=== PATIENT | female | born 1945 | race Caucasian/White ===

== ENCOUNTER → 2019-11-15 | Outpatient (CLI) | payer OTHER ==
[~2019-11-15] MED LIST: ALBU90OI INH; CYCL10 PO; DIPH50 PO; Norco 5-325 Ta1 EACH PO; Zithromax250 MG PO
== END ==
LOC: LAB SHORT 15:26 → LAB EV 15:26
DX: N39.0 Urinary tract infection, site not specified (principal)
CPT/HCPCS: 87077; 87086; 87186

== ENCOUNTER → 2023-09-05 | Outpatient (CLI) | payer OTHER ==
[~2023-09-05] MED LIST changes: +Acetaminophen325 M1 PO
== END | disposition home or self-care (01) ==
LOC: LAB SHORT 08:34 → LAB 08:34
DX: C54.1 Malignant neoplasm of endometrium (principal)
CPT/HCPCS: 88305; 88312; 88342

== ENCOUNTER 2024-03-18 18:21 | Inpatient (IN) | payer OTHER ==
[~2024-03-18] VITALS: Ht 160 cm; Wt 64.4 kg
[~2024-03-18 18:21] MED LIST changes: +ACET500 PO; -Acetaminophen325 M1 PO
[2024-03-18 18:50] LABS: BASOPHILS ABSOLUTE AUTO 0.02 K/mm3 (0.00-0.23); BASOPHILS PERCENT AUTO 0 % (0-2); EOSINOPHILS ABSOLUTE AUTO 0.08 K/mm3 (0.00-0.68); EOSINOPHILS PERCENT AUTO 1 % (0-6); Hematocrit 31.4 % (33.0-51.0); Hemoglobin 10.4 g/dL (11.5-16.0); IMMATURE GRAN ABSOLUTE AUTO 0.02 K/mm3 (0.00-0.10); IMMATURE GRAN PERCENT AUTO 0 % (0-1); LYMPHOCYTES ABSOLUTE AUTO 1.25 K/mm3 (0.84-5.20); LYMPHOCYTES PERCENT AUTO 13 % (21-46); MONOCYTES ABSOLUTE AUTO 0.81 K/mm3 (0.16-1.47); MONOCYTES PERCENT AUTO 8 % (4-13); Mean Corpuscular HGB 30.1 pg (26.0-34.0); Mean Corpuscular HGB Conc 33.1 g/dL (31.5-36.5); Mean Corpuscular Volume 91 fL (80-100); Mean Platelet Volume 8.7 fL (9.1-12.4); NEUTROPHILS ABSOLUTE AUTO 7.49 K/mm3 (1.96-9.15); NEUTROPHILS PERCENT AUTO 78 % (41-73); Platelet Count 391 K/mm3 (150-400); RDW Coefficient Variation 13.4 % (11.7-14.2); RDW Standard Deviation 44.2 fL (35.1-46.3); Red Blood Cell Count 3.46 M/mm3 (3.80-5.20); White Blood Cell Count 9.67 K/mm3 (4.00-11.30)
[2024-03-18] MEDS ORDERED: HYDR1TAB94 PO (19:14)
[2024-03-18 19:15] LABS: Albumin/Globulin Ratio 0.6 (0.8-1.8); Bilirubin, Total 0.5 mg/dL (0.1-1.0); Bun/Creatinine Ratio 26.2 (12.0-20.0); Creatinine, Blood 1.07 mg/dL (0.40-1.00); Globulin, Blood 4.9 g/dL (2.2-4.0); Potassium, Blood 4.3 mmol/L (3.5-5.5); Total Protein, Blood 7.9 g/dL (6.4-8.2)
[2024-03-18] MEDS ORDERED: Lactated Ringer's 1,000 ML IV ONE (21:10)
[2024-03-18 22:40] LABS: Source, Urine Clean Catch
[2024-03-18] MEDS ORDERED: Ketorolac Tromethamine 15mg Vial IV ONE (22:40)
[2024-03-18 22:45] LABS: Bilirubin, Urine Neg (Neg); Blood, Urine 5+ (Neg); Glucose Qualitative, Urine Neg (Neg); Ketones, Urine 2+ (Neg); Leukocyte Esterase, Urine 2+ (Neg); Nitrite, Urine Neg (Neg); Protein, Urine 2+ (Neg); Specific Gravity, Urine 1.015 (1.003-1.022); Urobilinogen, Urine NORM (Normal)
[2024-03-18 22:52] LABS: Appearance, Urine Hazy (Clear); Color, Urine Yellow (P-Yellow)
[2024-03-18 22:53] LABS: Bacteria Few /hpf; Red Blood Cells, Urine TNTC /hpf (0-2); Squamous Epithelial Cells Rare /hpf (Few)
[2024-03-18] MEDS ORDERED: Bisacodyl 10 MG Supp PR PRN (23:10)
[2024-03-18] MEDS ORDERED: FLU VACC TS2024-25(6MOS UP)/PF 45 MCG/0.5 ML SYRINGE IM ONE (23:10)
[2024-03-18] MEDS ORDERED: Magnesium Hydroxide Conc 10 ML UDC PO PRN (23:10)
[2024-03-18] MEDS ORDERED: FentaNYL Citrate 50 MCG/ML 2 ML Injection IV PRN (23:10)
[2024-03-18] MEDS ORDERED: Ondansetron HCl 2 MG / ML 2ML Vial IV PRN (23:15)
[2024-03-18] MEDS ORDERED: NS 1,000 ML IV ONE (23:15)
[2024-03-19 01:30] VITALS: BP 135/73
--- NOTE | 2024-03-19 02:59 | NUR ---
SHIFT SUMMARY THIS CORD CUTTER RECEIVED A TELEPHONE SBAR FROM TATA SYKES@ ER @0022. PT ARRIEVED TO MEDICAL FLOOR RM#[id number] VIA [facility] @0120. PT WAS TRANSPORTED BY ER STAFF MEMBER. PT WAS TRANSFERRED FROM [facility] TO HOSPITAL BED. ADMISSION ASSESSMENT COMPLETED BY LOG CARRIER OPERATOR LISA. SKIN CHECK COMPLETED BY TATA REHMAN AND THIS CORD CUTTER. HEALTH HX AND MEDICATION RECONCILIATION COMPLETED BY THIS CORD CUTTER. PT STATES HAD AN ALLERGIC REACTION TO HYDROCODONE WITH TYLENOL IN THE PAST (RASH T/O THE BODY.) ALLERGY IS LISTED ON PT'S EMAR/MEDITECH. PT REPORTS FEELING WEAK. PT WAS GIVEN FWW, AND ASSISTED/STANDBY TO THE RESTROOM. TELE: SR@98. PT IS ON RA. MEDICATIONS WHOLE WITH FLUIDS. DIET ORDER: CLEAR LIQUIDS. IV NS@100MLS/HR STARTED 06/19 BAG ORDERED. FENTANYL PRN FOR C/O 8/10 LLQ AND LOW BACK PAIN, ADMINISTERED ORDERED. PT REPORTS GOOD EFFECTIVNESS. PT STATES LIVES IN HER SON'S HOUSE, DAUGHTER AND GRAND DAUGHTER ARE VERY HELPFUL WELL. 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 PT STATES FINISHED WITH CHEMO THERAPY, DOES NOT RECALL WHEN LAST CHEMO TX WAS. PT REPORTS STARTING IMMUNOTHERAPY AFTER CHEMO. PT C/O CONSTIPATION, LAST BM WAS ON 03/14/24 OR PRIOR TO THAT DATE. PT WAS EDUCATED ON FIRE SAFETY AND CALL LIGHT. PALLIATIVE CARE CONSULT REQUESTED D/T PT WOULD LIKE TO FILL OUT FORMS FOR ADVANCE DIRECTIVE. BED AT THE LOWEST POSITION, CALL LIGHT WITHIN REACH. PT IS A&ON X4, VERY PLEASANT, COOPERATIVE WITH CARE. PT IS ABLE TO MAKE HER NEEDS KNOWN.
[2024-03-19] MEDS ORDERED: CefTRIAXone Sodium 1,000 MG in NS 100 ML IV SCH (03:54)
[2024-03-19] MEDS ORDERED: NS 250 ML IV PRN (04:30)
--- NOTE | 2024-03-19 04:59 | NUR ---
NEW T-ORDER RECEIVED FROM ON-CALL HOSPITALIST FOR TYLENOL PO PRN 650MG Q6HRS. ENTERED TO [employer] BY THIS LEAD DEVELOPER, SEE EMAR. NO ADDITIONAL NEW ORDERS AT THIS TIME. PT REQUESTED TYLENOL FOR LLQ AND LOW BACK PAIN. WILL ADMINISTER WHEN THE NEW ORDER ACTIVATES.
[2024-03-19] MEDS ORDERED: Acetaminophen 325 MG TABLET PO PRN (05:00)
[2024-03-19] MEDS ORDERED: ELIQUIS2.5 M1 PO (05:24)
[2024-03-19] MEDS ORDERED: Prednisone10 MG PO (05:24)
[2024-03-19 05:41] LABS: BASOPHILS ABSOLUTE AUTO 0.03 K/mm3 (0.00-0.23); BASOPHILS PERCENT AUTO 0 % (0-2); EOSINOPHILS ABSOLUTE AUTO 0.11 K/mm3 (0.00-0.68); EOSINOPHILS PERCENT AUTO 1 % (0-6); Hematocrit 27.4 % (33.0-51.0); Hemoglobin 8.8 g/dL (11.5-16.0); IMMATURE GRAN ABSOLUTE AUTO 0.04 K/mm3 (0.00-0.10); IMMATURE GRAN PERCENT AUTO 1 % (0-1); LYMPHOCYTES ABSOLUTE AUTO 1.45 K/mm3 (0.84-5.20); LYMPHOCYTES PERCENT AUTO 18 % (21-46); MONOCYTES ABSOLUTE AUTO 0.83 K/mm3 (0.16-1.47); MONOCYTES PERCENT AUTO 11 % (4-13); Mean Corpuscular HGB 29.8 pg (26.0-34.0); Mean Corpuscular HGB Conc 32.1 g/dL (31.5-36.5); Mean Corpuscular Volume 93 fL (80-100); Mean Platelet Volume 8.9 fL (9.1-12.4); NEUTROPHILS ABSOLUTE AUTO 5.46 K/mm3 (1.96-9.15); NEUTROPHILS PERCENT AUTO 69 % (41-73); Platelet Count 320 K/mm3 (150-400); RDW Coefficient Variation 13.5 % (11.7-14.2); RDW Standard Deviation 45.8 fL (35.1-46.3); Red Blood Cell Count 2.95 M/mm3 (3.80-5.20); White Blood Cell Count 7.92 K/mm3 (4.00-11.30)
[2024-03-19 06:55] LABS: Albumin, Blood 2.5 g/dL (3.4-5.0); Albumin/Globulin Ratio 0.6 (0.8-1.8); Bilirubin, Total 0.4 mg/dL (0.1-1.0); Bun/Creatinine Ratio 28.3 (12.0-20.0); Calcium, Blood 9.4 mg/dL (8.5-10.1); Creatinine, Blood 1.06 mg/dL (0.40-1.00); Globulin, Blood 4.1 g/dL (2.2-4.0); Potassium, Blood 4.3 mmol/L (3.5-5.5); Total Protein, Blood 6.6 g/dL (6.4-8.2)
[2024-03-19 07:49] VITALS: BP 116/59
--- NOTE | 2024-03-19 07:53 | NUR ---
DR CLAY WITH INTERVENTIONAL RADIOLOGY TO BEDSIDE. VERBAL ORDERS FOR NPO IN ANTICIPATION OF NEPHROSTOMY PLACEMENT LATER THIS AFTERNOON.
[2024-03-19] MEDS ORDERED: PredniSONE 10 MG Tab PO SCH (09:00)
[2024-03-19] MEDS ORDERED: Docusate Sodium 100 MG Cap PO SCH (09:00)
[2024-03-19] MEDS ORDERED: Sennosides 8.6 MG Tab PO SCH (09:00)
[2024-03-19] MEDS ORDERED: Lactated Ringer's 1,000 ML IV SCH (12:40)
[2024-03-19] MEDS ORDERED: ONDA4ODT MM (14:23)
[2024-03-19] MEDS ORDERED: NS 250 ML IV ONE (16:01)
[2024-03-19] MEDS ORDERED: NS 500 ML IV ONE (16:16)
[2024-03-19] MEDS ORDERED: Midazolam HCl 1MG / ML 2ML Vial ONE (16:16)
[2024-03-19] MEDS ORDERED: FentaNYL Citrate 50 MCG/ML 2 ML Injection ONE (16:16)
--- NOTE | 2024-03-19 16:33 | NUR ---
PATIENT TRANSPORTED TO [facility] FOR IR PROCEDURE BY HEART CENTER STAFF.
--- NOTE | 2024-03-19 17:19 | NUR ---
CALL FROM [facility] IN IR: THEY ARE HEADED BACK WITH PATIENT RIGHT NOW.
[2024-03-19] MEDS ORDERED: TraMADol HCl 50 MG Tab PO PRN (17:20)
[2024-03-19 17:35] VITALS: BP 132/56
--- NOTE | 2024-03-19 19:21 | NUR ---
END OF SHIFT SUMMARY: A&Ox4. PLEASANT AND COOPERATIVE WITH CARE. CALLS APPROPRIATELY AND IS ABLE TO ADVOCATE NEEDS EFFECTIVELY. WEAKNESS SECONDARY TO PAIN; SBA c FWW. NO BM TODAY; GIVEN STOOL SOFTENERS, BUT SHE WANTED TO WAIT UNTIL AFTER HER PROCEDURE FOR LAXATIVE. LBM x5 DAYS AGO. MEDS WHOLE WITH FLUIDS. TELE SINUS IN THE 90s. PAIN CONSTANT, IMPROVED WITH FENTANYL. IR CONSULTED AND PLACED 8F LEFT NEPHROSTOMY TODAY. SECURELY ATTACHED TO BANDAGE AT INSERTION SITE AND ATTACHED TO A URACIL BAG. 100mL SEROSANGUINEOUS DRAINAGE DRAINED FROM COLLECTION BAG. ADDITION OF TRAMADOL TO MEDICATION REGIMEN FOR LONGEVITY OF PAIN CONTROL AND CONTINUE USE OF FENTANYL FOR IMMEDIATE RELIEF. ORDERS TO FLUSH TUBE c 10mL SALINE QD. FAMILY AT BEDSIDE MOST OF EVENING. PALLIATIVE CARE TO BEDSIDE TO DISCUSS ADVANCED DIRECTIVE AND LEFT INFORMATION. BED IN LOWEST POSITION. CALL LIGHT WITHIN REACH. ALL NEEDS MET. REPORT TO ONCOMING NURSE.
[2024-03-19 19:49] VITALS: BP 128/75
[2024-03-20 03:37] VITALS: BP 131/55
--- NOTE | 2024-03-20 04:17 | NUR ---
THIS EXTERIOR WORK HELPER [facility] PT C/O 01/26 PAIN ON LLQ AND LOW BACK. NO ALAGESICS AVAILABLE AT THIS TIME. DR. BROWN STATED THAT HE WILL PUT IN NEW ORDER. NO NEW ORDERS RECEIVED OVER THE PHONE AT THIS TIME.
--- NOTE | 2024-03-20 04:45 | NUR ---
SHIFT SUMMARY PT CONTINUES TO HAVE SEVERE PAIN <Q4HRS, RATING 8/10@LLQ AND LOW BACK. TRAMADOL, TYLENOL PO PRN NOT EFFECTIVE PER PT REPORT. FENTANYL PRN IV EFFECTIVE FOR SHORT TIME PERIOD. LEFT NEPHROSTOMY INTACT, DRAINING PINKINSH COLOR FLUID. PT HAS BEEN RESTING FEW HRS DURING THIS SHIFT. THIS MANAGEMENT SERVICES TECHNICIAN CALLED /ON-CALL HOSPITALIST. DR. BROWN REPORTS WILL CHANGE PAIN MEDICATION ORDERS. AWAITING TO ADMINISTER. NO ACUTE EVENTS DURING THIS SHIFT. PT IS A&O X4, ABLE TO MAKE HER NEEDS KNOWN. BED AT THE LOWEST POSITION. PT IS STANDBY ASSIST TO THE RESTROOM. PT IS COOPERATIVE WITH CARE.
[2024-03-20 06:02] LABS: BASOPHILS ABSOLUTE AUTO 0.03 K/mm3 (0.00-0.23); BASOPHILS PERCENT AUTO 0 % (0-2); EOSINOPHILS ABSOLUTE AUTO 0.05 K/mm3 (0.00-0.68); EOSINOPHILS PERCENT AUTO 1 % (0-6); Hematocrit 26.4 % (33.0-51.0); Hemoglobin 8.4 g/dL (11.5-16.0); IMMATURE GRAN ABSOLUTE AUTO 0.04 K/mm3 (0.00-0.10); IMMATURE GRAN PERCENT AUTO 0 % (0-1); LYMPHOCYTES ABSOLUTE AUTO 1.44 K/mm3 (0.84-5.20); LYMPHOCYTES PERCENT AUTO 15 % (21-46); MONOCYTES PERCENT AUTO 10 % (4-13); Mean Corpuscular HGB 29.9 pg (26.0-34.0); Mean Corpuscular HGB Conc 31.8 g/dL (31.5-36.5); Mean Corpuscular Volume 94 fL (80-100); Mean Platelet Volume 8.8 fL (9.1-12.4); NEUTROPHILS PERCENT AUTO 74 % (41-73); Platelet Count 386 K/mm3 (150-400); RDW Coefficient Variation 13.9 % (11.7-14.2); RDW Standard Deviation 47.5 fL (35.1-46.3); Red Blood Cell Count 2.81 M/mm3 (3.80-5.20); White Blood Cell Count 9.86 K/mm3 (4.00-11.30)
[2024-03-20] MEDS ORDERED: HYDROmorphone HCl/Pf 1MG SYR IV PRN (06:30)
[2024-03-20 06:45] LABS: Albumin, Blood 2.4 g/dL (3.4-5.0); Albumin/Globulin Ratio 0.6 (0.8-1.8); Bilirubin, Total 0.3 mg/dL (0.1-1.0); Calcium, Blood 9.2 mg/dL (8.5-10.1); Creatinine, Blood 0.78 mg/dL (0.40-1.00); Globulin, Blood 4.2 g/dL (2.2-4.0); Total Protein, Blood 6.6 g/dL (6.4-8.2)
[2024-03-20] MEDS ORDERED: Ketorolac Tromethamine 30mg Vial IV PRN (07:00)
[2024-03-20 07:30] VITALS: BP 136/58
[2024-03-20] MEDS ORDERED: Magnesium Hydroxide Conc 10 ML UDC PO PRN (11:10)
[2024-03-20] MEDS ORDERED: OxyCODONE HCL 5 MG TAB PO PRN (11:15)
[2024-03-20 16:28] VITALS: BP 137/69
--- NOTE | 2024-03-20 19:22 | NUR ---
SHIFT SUMMARY- BEDSIDE REPORT COMPLETED WITH NIGHT RN ANDREA, ON EVENING ROUNDS THE PT REQUESTED PAIN MEDICATION HER PAIN HAS BEEN WELL MANAGED WITH 5MG OXY SHE REQUESTED THAT. MEDICATED PT JUST PRIOR TO SHIFT CHANGE. PT REPORTS 1/10 PAIN AT THIS TIME. PT IN BED, CALL LIGHT IN REACH NO S&S OF DISTRESS NOTED. PT HAS MULTIPLE VISITORS PRESENT AT THE BEDSIDE.
[2024-03-20 19:55] VITALS: BP 135/70
[2024-03-20] MEDS ORDERED: DiphenhydrAMINE HCl 50 MG Cap PO ONE (22:00)
--- NOTE | 2024-03-20 22:14 | NUR ---
THIS CONFERENCE SERVICES MANAGER CALLED ON-CALL HOSPITALIST ZECHARIAH. PT C/O SKIN ITCHING AROUND GROIN AREA. ZECHARIAH ENTERED A ONE TIME ORDER FOR BENADRYL 50MG PO. ADMINISTERED ORDERED. SEE EMAR.
--- NOTE | 2024-03-21 03:51 | NUR ---
SHIFT SUMMARY PT IS A&O X4, PLEASANT, COOPERATIVE WITH CARE. PT C/O 5/10 LLQ& RLQ PAIN. PRN TORADOL X1, AND LATER 1X OXYCODONE 5MG PO PRN EFFECTIVE PER PT REPORT. PT C/O ITCHING AROUND GROIN AREA. ONE TIME ORDER BENADRYL PO 50MG RECEIVED FROM ON-CALL HOSPITALIST ZECHARIAH. TELE: SR@. PT DENIES N/V. NO BM DURING THIS SHIFT, HS SCHEDULED SENNA& COLACE ADMINISTERED ORDERED. NEPHROSTOMY DRESSING C/D/I. URINE IS PINKISH IN COLOR. PULSE OX>95% ON RA. NO ACUTE EVENTS DURING THIS SHIFT. BED AT THE LOWEST POSITION, CALL LIGHT WITHIN REACH. PT IS ABLE TO MAKE HER NEEDS KNOWN.
[2024-03-21 05:39] VITALS: BP 142/79
[2024-03-21 07:07] LABS: BASOPHILS ABSOLUTE AUTO 0.03 K/mm3 (0.00-0.23); BASOPHILS PERCENT AUTO 0 % (0-2); EOSINOPHILS ABSOLUTE AUTO 0.05 K/mm3 (0.00-0.68); EOSINOPHILS PERCENT AUTO 1 % (0-6); Hematocrit 26.2 % (33.0-51.0); Hemoglobin 8.5 g/dL (11.5-16.0); IMMATURE GRAN ABSOLUTE AUTO 0.04 K/mm3 (0.00-0.10); IMMATURE GRAN PERCENT AUTO 0 % (0-1); LYMPHOCYTES ABSOLUTE AUTO 1.43 K/mm3 (0.84-5.20); LYMPHOCYTES PERCENT AUTO 13 % (21-46); MONOCYTES PERCENT AUTO 10 % (4-13); Mean Corpuscular HGB 30.1 pg (26.0-34.0); Mean Corpuscular HGB Conc 32.4 g/dL (31.5-36.5); Mean Corpuscular Volume 93 fL (80-100); Mean Platelet Volume 8.7 fL (9.1-12.4); NEUTROPHILS ABSOLUTE AUTO 8.06 K/mm3 (1.96-9.15); NEUTROPHILS PERCENT AUTO 75 % (41-73); Platelet Count 393 K/mm3 (150-400); RDW Coefficient Variation 13.8 % (11.7-14.2); RDW Standard Deviation 46.6 fL (35.1-46.3); Red Blood Cell Count 2.82 M/mm3 (3.80-5.20); White Blood Cell Count 10.71 K/mm3 (4.00-11.30)
[2024-03-21 07:16] VITALS: BP 134/58
[2024-03-21 07:50] LABS: Albumin, Blood 2.5 g/dL (3.4-5.0); Albumin/Globulin Ratio 0.6 (0.8-1.8); Bilirubin, Total 0.3 mg/dL (0.1-1.0); Bun/Creatinine Ratio 45.2 (12.0-20.0); Calcium, Blood 9.9 mg/dL (8.5-10.1); Creatinine, Blood 0.77 mg/dL (0.40-1.00); Globulin, Blood 4.2 g/dL (2.2-4.0); Potassium, Blood 5.1 mmol/L (3.5-5.5); Total Protein, Blood 6.7 g/dL (6.4-8.2)
[2024-03-21] MEDS ORDERED: Betamethasone/Clotrimazole Crm 15 gm TOP SCH (09:00)
[2024-03-21] MEDS ORDERED: CLOBETTC TOP (12:12)
[2024-03-21] MEDS ORDERED: DULCOLAX400 MG/5 M PO (12:12)
[2024-03-21] MEDS ORDERED: OXYC5 PO (12:13)
[2024-03-21] MEDS ORDERED: Prednisone10 MG PO (12:14)
[2024-03-21] MEDS ORDERED: Lactulose 20 GM/30 ML UDC PO ONE (14:20)
[2024-03-21] MEDS ORDERED: Lactated Ringer's 500 ML IV ONE (15:00)
[2024-03-21] MEDS ORDERED: Metoclopramide HCl 5MG / ML 2ML Vial IV PRN (15:20)
[2024-03-21 16:08] VITALS: BP 136/65
--- NOTE | 2024-03-21 16:13 | NUR ---
[facility] WAS SIGNED BY PROVIDER THIS MORNING. COPY MADE SENT TO MEDICAL RECORDS. FAXED TO [facility].
[2024-03-21 19:59] VITALS: BP 143/65
--- NOTE | 2024-03-21 20:10 | NUR ---
SHIFT SUMMARY- PT ALERT AD ORIENTED X4. PLAN WAS FOR MD TO DC THE PT AFTER SHE HAS A BM. AFTER MOM, DOCUSATE, SENNA, BISACODYL SUPPOSITORY, BROWN COW, REGLAN AD FINALLY LACTULOSE, THE PT HAD ABOUT 12 ML OF BROWN LIQUID JELLY. CALLED DR RIDLEY AND HE IS AWARE. PLAN IS TO HOLD DISCHARGE AND REVISIT THE PLAN TOMORROW. PT IN BED, CALL LIGHT IN REACH NO S&S OF DISTRESS AT THE TIME OF BEDSIDE REPORT. PT RECIEVED PAIN MEDS AT CHANGE OF SHIFT.
--- NOTE | 2024-03-22 03:27 | NUR ---
SHIFT SUMMARY @HS PT'S DAUGHTERS BY THE BEDSIDE. PT C/O 5-11/26 LLQ PAIN. MEDICATED WITH PRN PO OXYCODONE 5MG X1, PRN IV TORADOL 15MG X1, AND PRN PO OXYCODONE 10MG X1. NEPHROSTOMY OUTPUT 200ML, REDDISH IN COLOR, DRAINING WELL, DRESSING C/D/I. PT VOIDING SMALL AMOUNTS <75ML X4 DURING THIS SHIFT. PT AMBULATES WTH STANDBY ASSIST TO THE RESTROOM. BOWEL PROTOCL CONTINUED DURING THIS SHIFT: NO BM, SOME URGENCY. BOWEL TONES HYPOACTIVE PER AUSCULTATION. BED AT THE LOWEST POSITION, CALL LIGHT W/I REACH. PT IS ABLE TO MAKE HER NEEDS KNOWN, AND IS COOPERATIVE WITH CARE.
[2024-03-22 07:13] VITALS: BP 142/64
--- NOTE | 2024-03-22 08:19 | NUR ---
Pt laying in bed watching tv, a/ox4, pleasant and cooperative with care, follows commands well, denies pain at this time, instructed her to let nurse know as soon as starts so we can stay on top of it, lungs are clear t/o, resp even and unlabored, no cough noted, denies cough, hrr, tele in place running sr per monitor, see strip, no edema noted, piv to lac site is clear and patent, btx2 hypoactive, abd a bit distended, she thinks she may be passing some gas, but no bm in many days, bowel care was started, has urostomy in place, draing dk fluid, able to ambulate with a walker and help, skin c/w/d, gerber yan, call light in reach.
[2024-03-22] MEDS ORDERED: Lactulose 20 GM/30 ML UDC PO ONE ×2 (08:55→09:00)
[2024-03-22] MEDS ORDERED: Ondansetron HCl 2 MG / ML 2ML Vial IV ONE (09:20)
[2024-03-22] MEDS ORDERED: Ondansetron HCl 2 MG / ML 2ML Vial ONE (09:23)
--- NOTE | 2024-03-22 09:30 | NUR ---
pt unable to tolerate the lactulose, immediately came back up, notified Dr. Vivar, recieved order for zofran, this was administered with relief, family at bedside. call light in reach.
[2024-03-22] MEDS ORDERED: Lactated Ringer's 1,000 ML IV SCH ×2 (11:20→22:50)
[2024-03-22] MEDS ORDERED: Polyethylene Glycol 3350 17 gm PO SCH (12:00)
[2024-03-22] MEDS ORDERED: Lactulose 20 GM/30 ML UDC PO SCH (13:00)
[2024-03-22 15:31] VITALS: BP 134/69
[2024-03-22] MEDS ORDERED: Lidocaine HCl 2% Jelly 120MG/6ML SYR (20MG PER ML) TOP ONE (17:35)
--- NOTE | 2024-03-22 18:24 | NUR ---
Pt family in to visit. ordered an NG tube to decompress, this was placed without diff, she tolerated well, immediate return of clear/brown liquid, she thinks she may have had a very small bm this evening. no further changes this shift, call light in reach.
[2024-03-22 20:32] VITALS: BP 139/69
[2024-03-23] MEDS ORDERED: Benzocaine Oral Spray 0.5ML UD MT PRN (02:00)
[2024-03-23 04:58] LABS: BASOPHILS ABSOLUTE AUTO 0.02 K/mm3 (0.00-0.23); BASOPHILS PERCENT AUTO 0 % (0-2); EOSINOPHILS ABSOLUTE AUTO 0.04 K/mm3 (0.00-0.68); EOSINOPHILS PERCENT AUTO 0 % (0-6); Hematocrit 25.2 % (33.0-51.0); IMMATURE GRAN ABSOLUTE AUTO 0.04 K/mm3 (0.00-0.10); IMMATURE GRAN PERCENT AUTO 0 % (0-1); LYMPHOCYTES ABSOLUTE AUTO 0.75 K/mm3 (0.84-5.20); LYMPHOCYTES PERCENT AUTO 7 % (21-46); MONOCYTES ABSOLUTE AUTO 0.83 K/mm3 (0.16-1.47); MONOCYTES PERCENT AUTO 8 % (4-13); Mean Corpuscular HGB 29.4 pg (26.0-34.0); Mean Corpuscular HGB Conc 31.7 g/dL (31.5-36.5); Mean Corpuscular Volume 93 fL (80-100); Mean Platelet Volume 8.7 fL (9.1-12.4); NEUTROPHILS PERCENT AUTO 83 % (41-73); Platelet Count 414 K/mm3 (150-400); RDW Standard Deviation 47.7 fL (35.1-46.3); Red Blood Cell Count 2.72 M/mm3 (3.80-5.20); White Blood Cell Count 10.18 K/mm3 (4.00-11.30)
[2024-03-23 05:27] LABS: Albumin, Blood 2.2 g/dL (3.4-5.0); Albumin/Globulin Ratio 0.5 (0.8-1.8); Bilirubin, Total 0.5 mg/dL (0.1-1.0); Bun/Creatinine Ratio 55.6 (12.0-20.0); Calcium, Blood 9.3 mg/dL (8.5-10.1); Creatinine, Blood 0.68 mg/dL (0.40-1.00); Globulin, Blood 4.1 g/dL (2.2-4.0); Potassium, Blood 4.8 mmol/L (3.5-5.5); Total Protein, Blood 6.3 g/dL (6.4-8.2)
[2024-03-23 06:01] VITALS: BP 145/66
[2024-03-23 07:17] VITALS: BP 128/67
[2024-03-23 14:56] VITALS: BP 143/63
[2024-03-23] MEDS ORDERED: Dexamethasone Sod Phos 10 MG/ML 1ML VIAL IV SCH (15:56)
[2024-03-23] MEDS ORDERED: Enoxaparin 40 MG/0.4 ML SYR SC SCH (16:00)
[2024-03-23] MEDS ORDERED: OCTREOTIDE ACETATE 100 MCG/ML SC SCH (16:05)
--- NOTE | 2024-03-23 17:12 | NUR ---
SHIFT SUMMARY PT IS A/OX4. PT IS CONTINENT/INCONTINENT AND AMBULATES TO THE BATHROOM WITH THE FWW AND A 1 PERSON SBA. URINATING TEA/DARK COLORED URINE. NG TUBE TO LOW INTERMITTENT SUCTION. THIS AFTERNOON PER DR OLIVARES THE NG TUBE WAS CLAMPED FOR ABOUT AN HOUR BEFORE THE PT BEGAN TO FEEL ABDOMINAL DISCOMFORT, THE NG TUBE WAS UNCLAMPED WITH IMMEDIATE RETURN OF CLEAR/BROWN FLUIDS. LR RUNNING @ 150 ML/HR. ON RA, TELE RUNNING SINUS TACH IN THE 110'S. FAMILY AT BEDSIDE THROUGHOUT THE SHIFT.
[2024-03-23 19:50] VITALS: BP 126/62
[2024-03-24 02:58] VITALS: BP 113/48
[2024-03-24 07:36] VITALS: BP 120/53
[2024-03-24] MEDS ORDERED: Ondansetron 4 MG SoluTab MM PRN (11:50)
[2024-03-24] MEDS ORDERED: OCTREOTIDE ACETATE 500 MCG/ML SC SCH (14:00)
[2024-03-24] MEDS ORDERED: OCTREOTIDE ACETATE 100 MCG/ML SC SCH (14:00)
[2024-03-24 15:55] VITALS: BP 111/58
--- NOTE | 2024-03-24 18:18 | NUR ---
SHIFT SUMMARY PT IS A/OX4. SBA WITH FFW TO THE BATHROOM. NG TUBE CLAMPED TWICE THIS SHIFT FOR ABOUT AN HOUR BEFORE EXPERIENCING ABDOMINAL DISCOMFORT. LR RUNNING AT 150 ML/HR. HOSPICE REFERRAL THIS MORNING. TO ADVANCE DIET TO FULL LIQUID TOLERATED. FAMILY AT BEDSIDE THROUGHOUT MOST OF THE SHIFT. PT CALLS APPROPRIATELY USING THE CALL LIGHT.
[2024-03-24 20:22] VITALS: BP 112/46
[2024-03-24 22:52] LABS: BASOPHILS ABSOLUTE AUTO 0.01 K/mm3 (0.00-0.23); BASOPHILS PERCENT AUTO 0 % (0-2); EOSINOPHILS PERCENT AUTO 0 % (0-6); Hematocrit 25.5 % (33.0-51.0); IMMATURE GRAN ABSOLUTE AUTO 0.09 K/mm3 (0.00-0.10); IMMATURE GRAN PERCENT AUTO 1 % (0-1); LYMPHOCYTES PERCENT AUTO 10 % (21-46); MONOCYTES ABSOLUTE AUTO 0.75 K/mm3 (0.16-1.47); MONOCYTES PERCENT AUTO 6 % (4-13); Mean Corpuscular HGB 29.6 pg (26.0-34.0); Mean Corpuscular HGB Conc 31.4 g/dL (31.5-36.5); Mean Corpuscular Volume 94 fL (80-100); Mean Platelet Volume 8.6 fL (9.1-12.4); NEUTROPHILS ABSOLUTE AUTO 11.17 K/mm3 (1.96-9.15); NEUTROPHILS PERCENT AUTO 83 % (41-73); Platelet Count 493 K/mm3 (150-400); RDW Coefficient Variation 14.2 % (11.7-14.2); RDW Standard Deviation 48.7 fL (35.1-46.3); White Blood Cell Count 13.42 K/mm3 (4.00-11.30)
[2024-03-24 23:21] LABS: Albumin, Blood 2.4 g/dL (3.4-5.0); Albumin/Globulin Ratio 0.6 (0.8-1.8); Bilirubin, Total 0.5 mg/dL (0.1-1.0); Bun/Creatinine Ratio 72.2 (12.0-20.0); Calcium, Blood 9.2 mg/dL (8.5-10.1); Creatinine, Blood 0.87 mg/dL (0.40-1.00); Globulin, Blood 4.1 g/dL (2.2-4.0); Total Protein, Blood 6.5 g/dL (6.4-8.2)
[2024-03-24] MEDS ORDERED: CALCIUM GLUC IN NACL, ISO-OSM 50 ML IV ONE (23:45)
[2024-03-24] MEDS ORDERED: Sodium Zirconium Cyclosilicate 10 GM Packet PO ONE (23:50)
[2024-03-24] MEDS ORDERED: Dextrose 50% 50 ML Vial IV ONE (23:50)
[2024-03-24] MEDS ORDERED: Sodium Bicarb 8.4% 50 mEq Syringe IV ONE (23:50)
[2024-03-24] MEDS ORDERED: Insulin Regular 100 Unit/ML 1ML Dose IV ONE (23:50)
[2024-03-25 02:06] VITALS: BP 101/45
[2024-03-25 04:21] LABS: BASOPHILS ABSOLUTE AUTO 0.02 K/mm3 (0.00-0.23); BASOPHILS PERCENT AUTO 0 % (0-2); EOSINOPHILS ABSOLUTE AUTO 0.01 K/mm3 (0.00-0.68); EOSINOPHILS PERCENT AUTO 0 % (0-6); Hematocrit 23.8 % (33.0-51.0); Hemoglobin 7.4 g/dL (11.5-16.0); IMMATURE GRAN ABSOLUTE AUTO 0.06 K/mm3 (0.00-0.10); IMMATURE GRAN PERCENT AUTO 1 % (0-1); LYMPHOCYTES ABSOLUTE AUTO 1.64 K/mm3 (0.84-5.20); LYMPHOCYTES PERCENT AUTO 14 % (21-46); MONOCYTES ABSOLUTE AUTO 0.89 K/mm3 (0.16-1.47); MONOCYTES PERCENT AUTO 7 % (4-13); Mean Corpuscular HGB 29.4 pg (26.0-34.0); Mean Corpuscular HGB Conc 31.1 g/dL (31.5-36.5); Mean Corpuscular Volume 94 fL (80-100); Mean Platelet Volume 8.6 fL (9.1-12.4); NEUTROPHILS ABSOLUTE AUTO 9.43 K/mm3 (1.96-9.15); NEUTROPHILS PERCENT AUTO 78 % (41-73); Platelet Count 433 K/mm3 (150-400); RDW Coefficient Variation 14.2 % (11.7-14.2); RDW Standard Deviation 48.2 fL (35.1-46.3); Red Blood Cell Count 2.52 M/mm3 (3.80-5.20); White Blood Cell Count 12.05 K/mm3 (4.00-11.30)
[2024-03-25 04:43] LABS: Albumin, Blood 2.1 g/dL (3.4-5.0); Albumin/Globulin Ratio 0.6 (0.8-1.8); Bilirubin, Total 0.5 mg/dL (0.1-1.0); Bun/Creatinine Ratio 70.4 (12.0-20.0); Creatinine, Blood 0.94 mg/dL (0.40-1.00); Globulin, Blood 3.5 g/dL (2.2-4.0); Total Protein, Blood 5.6 g/dL (6.4-8.2)
[2024-03-25] MEDS ORDERED: DEXTROSE 50% IV ONE (05:00)
[2024-03-25] MEDS ORDERED: Insulin Regular 100 UNIT/ML 10ML Vial SC ONE (05:00)
[2024-03-25 05:39] LABS: Source, Urine Clean Catch
[2024-03-25 05:49] LABS: Bilirubin, Urine Neg (Neg); Blood, Urine 5+ (Neg); Glucose Qualitative, Urine Neg (Neg); Ketones, Urine 3+ (Neg); Leukocyte Esterase, Urine 1+ (Neg); Nitrite, Urine Neg (Neg); Protein, Urine 1+ (Neg); Specific Gravity, Urine 1.025 (1.003-1.022); Urobilinogen, Urine NORM (Normal)
[2024-03-25 05:57] LABS: Appearance, Urine Hazy (Clear); Color, Urine Yellow (P-Yellow)
[2024-03-25 05:59] LABS: Bacteria Few /hpf; Hyaline Casts 0-2 /lpf (0-2); Squamous Epithelial Cells Few /hpf (Few)
[2024-03-25] MEDS ORDERED: Furosemide 10 MG/ML 4ML Vial IV SCH (06:00)
[2024-03-25 07:33] VITALS: BP 112/49
[2024-03-25] MEDS ORDERED: Morphine Sulfate 20 MG/1ML 1 ML Oral Syringe SL PRN (07:35)
[2024-03-25 08:44] LABS: Creatinine, Blood 0.97 mg/dL (0.40-1.00); Potassium, Blood 5.4 mmol/L (3.5-5.5)
[2024-03-25] MEDS ORDERED: ATROPINE SULFATE2 M1 SL (13:44)
[2024-03-25] MEDS ORDERED: Ativan1 MG PO (13:46)
[2024-03-25] MEDS ORDERED: MORP20L SL (13:47)
[2024-03-25 16:24] VITALS: BP 122/51
--- NOTE | 2024-03-25 18:34 | NUR ---
DISCHARGE SUMMARY: PT DISCHARGED TO HOME WITH HOSPICE SERVICES.. PT AND FAMILY EDUCATED ON DISCHARGE MEDICATIONS AND INSTRUCTIONS. PT SENT HOME WITH NG TUBE IN PLACE AND CLAMPED. NEPHROSTOMY TO R FLANK DRESSING CDI, CLEAR YELLOW URINE DRAINED FROM COLLECTION BAG, 100 CC PRIOR TO LEAVING. PT TX TO WHEELCHAIR TRANSPORT WITH MIN ASSIST. SENT BELONGINGS WITH FAMILY.
== END 2024-03-25 17:23 | disposition hospice, home (50) | DRG 694 ==
LOC: ER 18:21 → MEDS 23:07
PROVIDERS: Emergency Medicine; Student in an Organized Health Care Education/Training Program; ADMIT Internal Medicine
PROC: 0T9130Z Drainage of Left Kidney with Drainage Device, Percutaneous Approach (ICD-10-PCS; principal; 2024-03-19)
DX: N13.30 Unspecified hydronephrosis (principal); K56.600 Partial intestinal obstruction, unspecified as to cause; N13.4 Hydroureter; I82.412 Acute embolism and thrombosis of left femoral vein; C77.4 Secondary and unspecified malignant neoplasm of inguinal and lower limb lymph nodes; C78.5 Secondary malignant neoplasm of large intestine and rectum; C78.7 Secondary malignant neoplasm of liver and intrahepatic bile duct; Z66 Do not resuscitate; Z51.5 Encounter for palliative care; C54.1 Malignant neoplasm of endometrium; K59.00 Constipation, unspecified; R60.0 Localized edema; R53.81 Other malaise; G89.29 Other chronic pain; M54.9 Dorsalgia, unspecified; J45.909 Unspecified asthma, uncomplicated; F31.9 Bipolar disorder, unspecified; F41.9 Anxiety disorder, unspecified; E86.0 Dehydration; N17.9 Acute kidney failure, unspecified; D63.0 Anemia in neoplastic disease; Z87.891 Personal history of nicotine dependence; Z90.710 Acquired absence of both cervix and uterus
CPT/HCPCS: 36415; 74177; 76937; 80048; 80053; 81001; 82947; 83880; 85025; 87086; 93971; 94762; 96361; 96365; 96366; 96374-59; 96375; 96376; 97116; 97162; 99152; 99153; 99285-25; A9270; C1729; C1769; G0378; J0612; J0696; J1100; J1650; J1815; J1885; J1940; J2250; J2354; J2405; J2765; J3010; J7030; J7040; J7050; J7060; J7120; J7512; Q9967